=== PATIENT | male | born 1995 | race Caucasian/White ===

== ENCOUNTER 2018-12-20 08:39 | Emergency (ER) | payer SELFPAY ==
[~2018-12-20] VITALS: Ht 170.2 cm; Wt 72.6 kg
[2018-12-20 09:42] VITALS: BP 121/82
== END 2018-12-20 10:16 | disposition home or self-care (01) ==
LOC: ER 08:39
DX: S01.511A Laceration without foreign body of lip, initial encounter (principal); S61.411A Laceration without foreign body of right hand, initial encounter; F17.210 Nicotine dependence, cigarettes, uncomplicated; F12.10 Cannabis abuse, uncomplicated; Y04.0XXA Assault by unarmed brawl or fight, initial encounter; Y93.89 Activity, other specified; Y99.8 Other external cause status; Y92.89 Other specified places as the place of occurrence of the external cause
CPT/HCPCS: 73130

== ENCOUNTER 2019-10-10 20:37 | Emergency (ER) | payer MEDICAID, OTHER ==
[~2019-10-10] VITALS: Ht 170.2 cm; Wt 61.2 kg
[2019-10-10 22:10] LABS: Urine Bacteria NONE SEEN /hpf (None Seen); Urine Blood Negative /uL (Negative); Urine Specific Gravity 1.026 (1.001-1.035); Urine WBC <1 /hpf (0 - 3)
[2019-10-10] MEDS ORDERED: cefTRIAXone SOD 1,000 MG VL IM ONE (23:30)
[2019-10-10] MEDS ORDERED: AZITHROMYCIN 250 MG TAB PO ONE (23:30)
[2019-10-10 23:32] VITALS: BP 132/84
== END 2019-10-11 00:23 | disposition home or self-care (01) ==
LOC: ER 20:38
DX: N48.22 Cellulitis of corpus cavernosum and penis (principal); Z20.2 Contact with and (suspected) exposure to infections with a predominantly sexual mode of transmission
CPT/HCPCS: 81001; 96372; 99283; J0696